=== PATIENT | male | born 1990 | race Hispanic/Latino ===

== ENCOUNTER 2018-04-24 20:41 | Emergency (ER) | payer OTHER, SELFPAY ==
--- NOTE | 2018-04-24 20:49 | ED_ITS ---
HPI - Extremity Problem <ACACIA Zavala - Last Filed: 04/24/18 21:43> General Chief complaint: Wound/Laceration Stated complaint: CUT RT 4TH FINGER Time Seen by Provider: 04/24/18 20:47 Source: patient Mode of arrival: ambulatory Limitations: no limitations History of Present Illness HPI Narrative: 27-year-old healthy male that is a nonsmoker. here for complaint of having laceration to his right ring finger over the PIP joint since this afternoon. 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 He denies any other injuries or concerns. He states that he believes his last tetanus was up-to-date. Review of Systems <ACACIA Zavala - Last Filed: 04/24/18 21:43> Constitutional Denies chills, Denies fever(s), Denies lethargy and Denies weakness Eyes Denies change in vision, Denies eye discharge, Denies irritation and Denies loss of vision ENT Ears, Nose, Mouth, and Throat: Denies change in voice, Denies neck pain and Denies sore throat Cardiovascular Denies chest pain, Denies irregular heart rhythm, Denies lightheadedness, Denies palpitations, Denies dyspnea, Denies dyspnea on exertion and Denies orthopnea Respiratory Denies cough, Denies dyspnea, Denies dyspnea on exertion and Denies wheezing Gastrointestinal Gastrointestinal: Denies abdominal pain, Denies change in bowel habits, Denies diarrhea, Denies nausea and Denies vomiting Genitourinary Denies hematuria, Denies flank pain, Denies urinary incontinence and Denies urinary urgency Musculoskeletal Denies neck pain Comments: Laceration left ring finger Integumentary/Breasts Denies pruritus, Denies erythema, Denies rash and Denies wounds Neurologic Denies loss of vision and Denies weakness Endocrine Denies palpitations Hematologic/Lymphatic Denies easy bruising Allergic/Immunologic Denies wheezing Exam <ACACIA Zavala - Last Filed: 04/24/18 21:43> Initial Vital Signs Initial Vital Signs: Vital Signs Temperature 98.6 F 04/24/18 20:55 Pulse Rate 68 04/24/18 20:55 Respiratory Rate 14 04/24/18 20:55 Blood Pressure 136/77 04/24/18 20:55 Pulse Oximetry 100 04/24/18 20:55 Const General: cooperative and well developed Nutritional Appearance: well nourished Orientation: alert, awake, oriented x3 and not confused [facility] Mouth: oral mucosae normal and moist mucous membranes Eyes Conjunctivae: conjunctivae normal Sclera: sclerae normal Pupils: PERRL EOM: EOM intact bilaterally Resp Effort & Inspection: normal respiratory effort, able to speak in complete sentences, no respiratory distress and no use of accessory muscles Auscultation: clear to auscultation bilaterally, no rales, no rhonchi and no wheezes Cardio Rate: regular rate Rhythm: regular rhythm Heart Sounds: no click, no gallops, no murmurs and no rubs Pulses: normal peripheral pulses Neuro General: alert, oriented x3, gait normal and no focal motor deficits Speech: speech normal Extrem Other: 1 cm laceration to the right ring finger over the dorsal aspect of the the IP joint. Distal sensation is intact. Distal range of motion is intact. Distal cap refill less than 2 sec. <Abimael Lozano DO - Last Filed: 04/24/18 22:15> Initial Vital Signs Initial Vital Signs: Vital Signs Temperature 98.6 F 04/24/18 20:55 Pulse Rate 68 04/24/18 20:55 Respiratory Rate 14 04/24/18 20:55 Blood Pressure 136/77 04/24/18 20:55 Pulse Oximetry 100 04/24/18 20:55 Procedures <ACACIA Zavala - Last Filed: 04/24/18 21:43> Laceration Repair Laceration 1: Site: other (Right ring finger) Side (If applicable): right Size (cm): 1 Description: linear Depth: simple, single layer Local Anesthetic: lidocaine 1% Amount of anesthesia used (mL): 1 Pre-repair: wound explored and irrigated extensively Skin layer closed with: nylon Size (cm): 5-0 Number of sutures: 2 Technique: simple, interrupted Course <ACACIA Zavala - Last Filed: 04/24/18 21:43> Vital Signs - 8 hr 04/24/18 20:55 Temperature 98.6 F Pulse Rate 68 Respiratory Rate 14 Blood Pressure 136/77 Pulse Oximetry 100 <DO Tyree Sanchez Last Filed: 04/24/18 22:15> Vital Signs - 8 hr 04/24/18 20:55 Temperature 98.6 F Pulse Rate 68 Respiratory Rate 14 Blood Pressure 136/77 Pulse Oximetry 100 MDM - Extremity (Nontraumatic) <ACACIA Zavala - Last Filed: 04/24/18 21:43> [facility] Narrative Medical decision making narrative: Laceration right ring finger was closed with 2 5-0 nylon sutures with good wound closure obtained. Wound dressed with bacitracin and a dressing. Splint is applied to finger to limit flexion of the finger and limit tension on the laceration area. Sutures removed in 7-10 days. Patient will double check with primary care tomorrow to ensure that his tetanus is up-to-date. [id number] Tylenol or Motrin as needed for any discomfort. Follow up with primary care provider. Return emergency room for any worsening symptoms. Discharge Plan Departure Patient Disposition: Home Clinical Impression: Laceration Discharge Date/Time: 04/24/18 21:34 Interventions: ED Discharge Assessment Last Done: 04/24/18 21:34 Instructions: DI for Laceration Repair Activity Restrictions/Additional Instructions: Laceration of the right ring finger was closed with 2 sutures. The sutures will need to be removed in 7-10 days. Wound is dressed with bacitracin and a dressing. Dress wound daily with bacitracin and a dressing until healed. Where original bandage for 24-36 hr and keep clean and dry. After this timeframe a shower briefly dry wound after and dressed with bacitracin dressing. No soaking wound. For any worsening symptoms or signs of infection return to the emergency room. Use [id number] Tylenol Motrin as needed for any discomfort. Verify with medical in the next day or 2 that your tetanus is up-to-date. Referrals: [facility] [Provider Group] <Abimael Lozano DO - Last Filed: 04/24/18 22:15> Cosign ED Attending Cosphilipature Attestation: I was available for consultation during this patient's emergency department encounter
[2018-04-24 20:55] VITALS: BP 136/77; PULSE 68; RESP 14; TEMP 37; O2SAT 100; BMI 26.6
== END 2018-04-24 21:34 | disposition home or self-care (01) ==
PROVIDERS: Emergency Provider Nurse Practitioner Family
DX: S61.214A Laceration without foreign body of right ring finger without damage to nail, initial encounter (principal); W26.8XXA Contact with other sharp object(s), not elsewhere classified, initial encounter; Y99.0 Civilian activity done for income or pay
CPT/HCPCS: 12001; 29130; 99283